=== PATIENT | male | born 1935 | race Caucasian/White ===

== ENCOUNTER → 2017-02-10 | Day surgery (SDC) | payer MEDICARE, BC ==
[~2017-02-10] MED LIST: ACETAMINOPHEN325 MG PO; ADVIL200 M2 PO; ALBUTEROL17 GM INH; ALDACTONE25 MG PO; AMIODARONE HCL400 MG PO; ASPIRIN81 MG PO; ATENOLOL PO; ATENOLOL50 MG PO; ATORVASTATIN CA80 MG PO; AUGMENTIN PO; CORDARONE200 M1 PO; COUMADIN5 MG PO; DIAZEPAM PO; DIAZEPAM10 MG PO; ELIQUIS2.5 MG PO; FLOMAX0.4 M1 PO; FLORASTOR250 M1 PO; FUROSEMIDE40 MG PO; HYDROCHLOROTHIA25 MG PO; IPRATR-ALBUTEROL3 ML INH; K-DUR20 ME1 PO; LASIX PO; LASIX20 MG PO; LEVAQUIN PO; LEVOTHYROXINE25 MC1 PO; LIPITOR PO; LIPITOR80 MG PO; LISINOPRIL5 MG PO; LOVENOX80 MG/0.8 INJ; LOW DOSE ASPIRI81 M1 PO; MELATONIN5 M1 PO; METOPROLOL TAR25 MG DOB; METOPROLOL TAR25 MG PO; MILK OF MAGNESIA PO; MOTION SICKNESS25 M4 PO; MYLANTA GAS80 M1 PO; OMEPRAZOLE40 M1 PO; PREDNISONE PO; PROTONIX PO; SERTRALINE HCL100 M1 PO; TENORMIN50 MG PO; TESSALON200 MG PO; VALIUM10 MG PO; VICODIN 5/1 TAB 5/50 PO; ZESTRIL5 MG PO; ZOFRAN ODT4 MG/UDTAB PO; ZOLOFT PO; ZOLOFT100 MG PO
--- NOTE | ~2017-02-10 | OR ---
Unit #: [id number] #: [id number] Patient: CHASE CASTELLON [id number] [address] [place], [place] [address] [id number] MR#: [id number] NAME: CHASE CASTELLON ROOM: Date of Procedure: 02/10/2017 Admission Date: 02/10/2017 Surgeon: Ralph Valdez M.D. : 1935 Attending Physician: Ralph Valdez M.D. Primary Care Physician: Padmini Dodson M.D. OPERATIVE REPORT PREOPERATIVE DIAGNOSIS The patient presented for colorectal cancer surveillance. He has personal history of colon polyps. PROCEDURES PERFORMED Colonoscopy and polypectomy. POSTOPERATIVE DIAGNOSES 1. A sessile adenoma in the proximal ascending colon. This was true flat sessile adenoma multilobulated about 3 cm above the ileocecal valve in the proximal ascending colon. It was removed after submucosal saline injection and technique of piecemeal polypectomy. 2. Moderate sigmoid and descending colon diverticulosis. 3. Rest of the examination up to cecum was normal. RECOMMENDATIONS In view of the patient's age, any future examinations are unnecessary and no further evaluation is indicated. SEDATION USED MAC. DESCRIPTION OF PROCEDURE Following detailed explanation of the potential risks and complications of a colonoscopy, namely perforation, bleeding, and complications related to sedation, the patient was brought to GI lab and laid in the left lateral decubitus position. A digital rectal examination was performed, which was normal. Lubricated tip of the Olympus video colonoscope was inserted through the anus and advanced under direct vision. The scope was advanced and passed up to sigmoid into descending colon. Multiple medium-sized diverticula were seen in this area. The scope tip was then navigated all the way up to cecum with visualization of the ileocecal valve and the appendiceal orifice. Preparation was good with good visualization and photodocumentation was obtained. Successive segments of the colonic mucosa were examined upon withdrawal. A sessile polyp was noted in the proximal ascending colon. This was multilobulated and true flat adenoma. It was removed after piecemeal polypectomy after racing the polyp using submucosal saline injection. The entire polyp was removed and sent for histology. Excellent hemostasis was achieved and photodocumentation was obtained. No additional polyps were noted. Other than medium-sized diverticula in the sigmoid descending colon, no other abnormalities were found. The patient did not have any hemorrhoids at anal verge. The scope Unit #: [id number] #: [id number] Patient: CHASE CASTELLON was withdrawn. The patient returned to the recovery area. He tolerated the procedure without any postprocedure complications. Dictated by... Opal Greene/gena TD: 02/10/2017 09:53 JOB #: [id number] OPERATIVE REPORT Page 1 of 1 X Ralph Valdez MD X PROCEDURE OPERATIVE NOTE
== END | disposition home or self-care (01) ==
LOC: COPS 07:13
DX: Z12.11 Encounter for screening for malignant neoplasm of colon (principal); D12.2 Benign neoplasm of ascending colon; K57.30 Diverticulosis of large intestine without perforation or abscess without bleeding; K21.9 Gastro-esophageal reflux disease without esophagitis; I50.9 Heart failure, unspecified; Z86.010 Personal history of colon polyps; Z79.899 Other long term (current) drug therapy; Z95.1 Presence of aortocoronary bypass graft; Z98.49 Cataract extraction status, unspecified eye; Z98.890 Other specified postprocedural states
CPT/HCPCS: 88305